=== PATIENT | female | born 1950 | race Caucasian/White ===

== ENCOUNTER 2020-04-22 05:42 | Inpatient (IN) ==
[2020-04-16 12:57] LABS: Bacteria,Urine Many /HPF (Few); Bilirubin,Urine Negative (Negative); Blood, Urine Small mg/dL (Negative); Glucose,Urine (UA) Negative (Negative); Ketones,Urine Negative (Negative); Mucus,Urine Occasional /LPF (Occasional); Nitrite,Urine Positive (Negative); Protein,Urine Negative; RBC,Urine 3 /HPF (0-4); Squamous Epithelial Cell,Urine Occasional /HPF (0-10); Urine Appearance CLEAR (Clear); Urine Color Yellow (Yellow); Urine Specific Gravity 1.019 (1.001-1.035); Urine Urobilinogen < 2.0 EU/DL (0.2-1.0); WBC,Urine 6 /HPF (0-6)
[2020-04-16 13:09] LABS: Basophils % 0.2 % (0.0-0.8); Eosinophils # 0.1 10*3/uL (0.0-0.87); Eosinophils % 1.7 % (0.00-10.9); Hematocrit 34.2 VOL% (35.7-47.0); Hemoglobin 11.5 GM/DL (12.0-16.0); Immature Granulocytes % 0.9 %; Immature Granulocytes Absolute 0.04 #; Lymphocytes # 1.8 10*3/uL (1.4-4.0); Lymphocytes % 39.5 % (21.3-54.2); Mean Corpuscular HGB Conc 33.6 GM/DL (32-36); Mean Corpuscular Volume 91.7 FL (87-102); Mean Platelet Volume 10.2 FL (9.6-12.0); Monocytes % 9.8 % (1.7-12.7); Neutrophils % 47.9 % (38.7-73.9); Platelet Count 204 T/CUMM (130-400); Red Blood Count 3.73 MC/CUMM (3.8-5.5); Red Cell Distribution Width 13.7 % (9.3-17.3); White Blood Count 4.6 T/CUMM (4-12)
[2020-04-16 13:23] LABS: Albumin 3.9 G/DL (3.4-5.0); Bilirubin,Total 0.8 MG/DL (0.2-1.0); Calcium 8.9 MG/DL (8.5-10.1); Osmolality,Calculated 279.8 MOS/KG (273-304); Total Protein 7.6 G/DL (6.4-8.3)
[2020-04-16 13:27] LABS: PT Patient Result 10.3 SECS (9.8-11.9); Partial Thromboplastin Time 29.5 SECS (23.9-33.8)
[2020-04-22] MEDS ORDERED: VANCOMYCIN INJ 1,000 MG in SODIUM CHLORIDE 0.9% 250 ML IV ONE (06:00)
[2020-04-22] MEDS ORDERED: GABAPENTIN 400 MG CAPSULE PO ONE (06:35)
[2020-04-22] MEDS ORDERED: FAMOTIDINE 20 MG TABLET PO ONE (06:35)
[2020-04-22] MEDS ORDERED: ACETAMINOPHEN 500 MG TABLET PO ONE (06:35)
[2020-04-22] MEDS ORDERED: DIAZEPAM 5 MG TABLET PO ONE (06:35)
[2020-04-22] MEDS ORDERED: ROPIVACAINE 0.5% 30 ML VIAL ONE ×2 (06:54)
[2020-04-22] MEDS ORDERED: LIDOCAINE 1% 5 ML VIAL ONE (06:54)
[2020-04-22] MEDS ORDERED: DEXAMETHASONE 4 MG/1 ML VIAL ONE (06:54)
[2020-04-22] MEDS ORDERED: LACTATED RINGERS 1,000 ML IV SCH (07:00)
[2020-04-22] MEDS ORDERED: ceFAZolin 2,000 MG in PREMIX 1 EACH IV ONE (07:00)
[2020-04-22] MEDS ORDERED: LIDOCAINE 2% 5 ML VIAL ONE (07:05)
[2020-04-22] MEDS ORDERED: ONDANSETRON 4 MG/2 ML VIAL ONE (07:06)
[2020-04-22] MEDS ORDERED: BUPIVACAINE SPINAL 0.75% 2 ML AMP SPINAL ONE (07:06)
[2020-04-22] MEDS ORDERED: SODIUM CHLORIDE 0.9% 100 ML IV ONE (07:08)
[2020-04-22] MEDS ORDERED: PHENYLEPHRINE 10 MG/1 ML VIAL IV ONE (07:08)
[2020-04-22] MEDS ORDERED: MIDAZOLAM 2 MG/2 ML VIAL ONE (07:08)
[2020-04-22] MEDS ORDERED: fentaNYL 100 MCG/2 ML VIAL ONE (07:09)
[2020-04-22] MEDS ORDERED: TRANEXAMIC ACID 1,000 MG/10 ML VIAL ONE (08:29)
[2020-04-22] MEDS ORDERED: BACITRACIN OINT 0.9 GM PACK TOP ONE (09:21)
[2020-04-22] MEDS ORDERED: MAGNESIUM HYDROXIDE SUSP 30 ML UDCUP PO PRN (09:34)
[2020-04-22] MEDS ORDERED: oxyCODONE/ACETAMINOPHEN 5-325 MG TABLET PO PRN (09:34)
[2020-04-22] MEDS ORDERED: MORPHINE 4 MG/1 ML VIAL IV PRN (09:34)
[2020-04-22] MEDS ORDERED: ONDANSETRON 4 MG/2 ML VIAL IV PRN (09:34)
[2020-04-22] MEDS: LACTATED RINGERS 1,000 ML IV SCH ×2 (13:02→17:31)
[2020-04-22] MEDS: KETOROLAC 15 MG/1 ML VIAL IV SCH ×3 (13:03→21:00)
[2020-04-22] MEDS: ceFAZolin 2,000 MG in PREMIX 1 EACH IV SCH ×2 (15:28→20:48)
[2020-04-22] MEDS: SULFAMETHOX/TRIMETHOPRIM 800-160 MG TABLET PO SCH (20:48)
[2020-04-22] MEDS: DOCUSATE SODIUM 100 MG CAPSULE PO SCH (20:48)
[2020-04-23] MEDS: LACTATED RINGERS 1,000 ML IV SCH (01:50)
[2020-04-23] MEDS: KETOROLAC 15 MG/1 ML VIAL IV SCH (04:15)
[2020-04-23] MEDS: FONDAPARINUX 2.5 MG/0.5 ML SYRINGE SUBCUT SCH (05:41)
[2020-04-23 06:01] LABS: Eosinophils % 0.1 % (0.00-10.9); Hematocrit 30.4 VOL% (35.7-47.0); Hemoglobin 9.9 GM/DL (12.0-16.0); Immature Granulocytes % 0.8 %; Immature Granulocytes Absolute 0.07 #; Lymphocytes # 0.8 10*3/uL (1.4-4.0); Lymphocytes % 9.3 % (21.3-54.2); Mean Corpuscular HGB Conc 32.6 GM/DL (32-36); Mean Corpuscular Volume 92.7 FL (87-102); Mean Platelet Volume 9.7 FL (9.6-12.0); Monocytes % 6.1 % (1.7-12.7); Neutrophils % 83.7 % (38.7-73.9); Platelet Count 247 T/CUMM (130-400); Red Blood Count 3.28 MC/CUMM (3.8-5.5); White Blood Count 8.9 T/CUMM (4-12)
[2020-04-23 06:18] LABS: Calcium 8.9 MG/DL (8.5-10.1); Osmolality,Calculated 285.5 MOS/KG (273-304)
[2020-04-23] MEDS ORDERED: SPIRONOLACTONE 25 MG TABLET PO SCH (09:00)
[2020-04-23] MEDS ORDERED: LOSARTAN 50 MG TABLET PO SCH (09:00)
[2020-04-23] MEDS: oxyCODONE/ACETAMINOPHEN 5-325 MG TABLET PO PRN ×2 (09:29→20:16)
[2020-04-23] MEDS: DOCUSATE SODIUM 100 MG CAPSULE PO SCH ×2 (09:30→20:16)
[2020-04-23] MEDS: carvediloL 12.5 MG TABLET PO SCH (09:30)
[2020-04-23] MEDS: SULFAMETHOX/TRIMETHOPRIM 800-160 MG TABLET PO SCH ×2 (09:30→20:16)
[2020-04-23] MEDS: THYROID 60 MG TABLET PO SCH (09:32)
[2020-04-23] MEDS: MORPHINE 4 MG/1 ML VIAL IV PRN (22:59)
[2020-04-24] MEDS: MORPHINE 4 MG/1 ML VIAL IV PRN (02:19)
[2020-04-24] MEDS: FONDAPARINUX 2.5 MG/0.5 ML SYRINGE SUBCUT SCH (05:26)
[2020-04-24 06:11] LABS: Basophils % 0.4 % (0.0-0.8); Eosinophils # 0.1 10*3/uL (0.0-0.87); Eosinophils % 1.2 % (0.00-10.9); Hematocrit 31.3 VOL% (35.7-47.0); Hemoglobin 10.1 GM/DL (12.0-16.0); Immature Granulocytes % 0.6 %; Immature Granulocytes Absolute 0.05 #; Lymphocytes # 1.6 10*3/uL (1.4-4.0); Lymphocytes % 19.9 % (21.3-54.2); Mean Corpuscular HGB Conc 32.3 GM/DL (32-36); Mean Corpuscular Volume 94.3 FL (87-102); Mean Platelet Volume 9.7 FL (9.6-12.0); Monocytes % 9.6 % (1.7-12.7); Neutrophils % 68.3 % (38.7-73.9); Platelet Count 263 T/CUMM (130-400); Red Blood Count 3.32 MC/CUMM (3.8-5.5); Red Cell Distribution Width 13.5 % (9.3-17.3); White Blood Count 8.1 T/CUMM (4-12)
[2020-04-24 06:24] LABS: Calcium 8.6 MG/DL (8.5-10.1); Osmolality,Calculated 281.7 MOS/KG (273-304)
[2020-04-24] MEDS: hydrALAZINE 25 MG TABLET PO SCH ×3 (09:26→20:59)
[2020-04-24] MEDS: DOCUSATE SODIUM 100 MG CAPSULE PO SCH ×2 (09:27→20:59)
[2020-04-24] MEDS: carvediloL 12.5 MG TABLET PO SCH ×2 (09:27→20:59)
[2020-04-24] MEDS: FUROSEMIDE 20 MG TABLET PO SCH (09:27)
[2020-04-24] MEDS: oxyCODONE/ACETAMINOPHEN 5-325 MG TABLET PO PRN ×2 (09:28→18:27)
[2020-04-24] MEDS: THYROID 60 MG TABLET PO SCH (09:40)
[2020-04-25 05:52] LABS: Basophils % 0.4 % (0.0-0.8); Eosinophils # 0.1 10*3/uL (0.0-0.87); Eosinophils % 1.6 % (0.00-10.9); Hematocrit 34.7 VOL% (35.7-47.0); Hemoglobin 11.3 GM/DL (12.0-16.0); Immature Granulocytes % 0.8 %; Immature Granulocytes Absolute 0.07 #; Lymphocytes # 1.6 10*3/uL (1.4-4.0); Lymphocytes % 18.1 % (21.3-54.2); Mean Corpuscular HGB Conc 32.6 GM/DL (32-36); Mean Corpuscular Volume 92.5 FL (87-102); Mean Platelet Volume 9.7 FL (9.6-12.0); Neutrophils % 68.1 % (38.7-73.9); Platelet Count 304 T/CUMM (130-400); Red Blood Count 3.75 MC/CUMM (3.8-5.5); Red Cell Distribution Width 13.8 % (9.3-17.3)
[2020-04-25 06:10] LABS: Calcium 9.6 MG/DL (8.5-10.1); Osmolality,Calculated 272.2 MOS/KG (273-304)
[2020-04-25] MEDS: FONDAPARINUX 2.5 MG/0.5 ML SYRINGE SUBCUT SCH (06:22)
[2020-04-25] MEDS: THYROID 60 MG TABLET PO SCH (08:38)
[2020-04-25] MEDS: DOCUSATE SODIUM 100 MG CAPSULE PO SCH (08:38)
[2020-04-25] MEDS: hydrALAZINE 25 MG TABLET PO SCH (08:38)
[2020-04-25] MEDS: carvediloL 12.5 MG TABLET PO SCH (08:38)
[2020-04-25] MEDS: FUROSEMIDE 20 MG TABLET PO SCH (08:38)
[2020-04-25] MEDS: oxyCODONE/ACETAMINOPHEN 5-325 MG TABLET PO PRN (10:16)
[2020-04-25 11:48] VITALS: BP 118/69
== END 2020-04-25 13:42 | disposition swing bed (61) | DRG 470 ==
LOC: N.OR 05:42 → N.SDSINP 05:44 → N.3E 11:33
PROVIDERS: ADMIT Orthopaedic Surgery; ATTEND Orthopaedic Surgery